=== PATIENT | female | born 1965 | race Caucasian/White ===

== ENCOUNTER → 2022-11-07 11:19 | Outpatient (BNVA) | payer MEDICAID, SELFPAY | PROVIDERS: PCP Family Medicine; Visit Provider Family Medicine | DX: E03.9 Hypothyroidism, unspecified (principal); R32 Unspecified urinary incontinence; E11.9 Type 2 diabetes mellitus without complications; K92.1 Melena; R39.9 Unspecified symptoms and signs involving the genitourinary system | CPT/HCPCS: 80053; 81000; 83036; 84439; 84443; 85025 ==

== ENCOUNTER → 2022-11-13 11:13 | Outpatient (BNVA) | payer MEDICAID, SELFPAY | PROVIDERS: PCP Family Medicine; Referring Provider Family Medicine; Visit Provider Specialist | DX: M17.0 Bilateral primary osteoarthritis of knee (principal) | CPT/HCPCS: 73560; 73565; 99204 ==

== ENCOUNTER 2022-12-21 12:50 | Outpatient (CLI) | payer MEDICAID, SELFPAY ==
--- NOTE | 2022-12-21 13:00 | MR_ITS ---
WS: [id number] MRI LUMBAR SPINE NONCONTRAST HISTORY: SPINAL STENOSIS/LUMBOSACRAL DISC DISORDERS W/RADICULOPATHY COMPARISON: None available. TECHNIQUE: Sagittal and axial multisequence imaging is submitted. Mild cervical stenosis at C4-5. Mild LEFT curvature lumbar spine with straightening. Disc spaces are all significantly narrowed and desiccated with hypertrophic endplate osteophytes. [place] ctive marrow edema. This level. No fracture. Conus terminates normally at L1-2 disc level. Nerve roots are being compressed and are redundant throughout the lumbar spine. T12-L1: Facet arthritis and mild foraminal narrowing. L1-L2: Diffuse disc bulging with ligamentum flavum and facet arthritis. Moderate central and bilatera l subarticular recess and mild foraminal stenosis. Disc contact and displacement on the traversing L2 nerve roots. L2-L3: Diffuse annular disc bulging with osteophytic ridging and facet arthritis. Severe central, jose cruz ateral subarticular recess and foraminal stenosis. Partially extruded disc on the RIGHT extends into the subarticular recess. L3-L4: Severe osteophytic ridging and annular disc bulging with ligamentum flavum and facet arthritis . Severe central with bilateral subarticular recess and foraminal stenosis. L4-L5: Severe annular disc bulging asymmetric to the LEFT. Suspect there are probably disc osteophyte complexes bilaterally but greatest on the LEFT. Severe central, bilateral subarticular recess and fo raminal stenosis. L5-S1: Marked diffuse annular disc bulging with encroachment upon the thecal sac and subarticular rec esses. Severe central, bilateral subarticular recess and foraminal stenosis. Paravertebral soft tissues are normal MR/MR lumbar spine wo con* [id number] IMPRESSION: 1. Severe multilevel stenoses throughout the lumbar spine with advanced facet disease. Severe degenerative disc disease with bulging and protrusions. 2. Severe central, bilateral subarticular recess and foraminal stenosis from L 2-3 through L5-S1. Most significant foraminal stenosis at L5-S1. 3. Moderate central, bilateral subarticular recess and mild foraminal stenosis at L1-2. 4. Redundant nerve roots within the thecal sac are being compressed and deform ed by the severe stenoses.
== END 2022-12-21 12:51 | disposition home or self-care (01) ==
PROVIDERS: PCP Family Medicine; Visit Provider Nurse Practitioner Psychiatric/Mental Health
DX: M48.061 Spinal stenosis, lumbar region without neurogenic claudication (principal); M51.17 Intervertebral disc disorders with radiculopathy, lumbosacral region; M47.27 Other spondylosis with radiculopathy, lumbosacral region; M48.07 Spinal stenosis, lumbosacral region
CPT/HCPCS: 72148

== ENCOUNTER → 2022-12-28 16:01 | Outpatient (BNVA) | payer MEDICAID, SELFPAY | PROVIDERS: PCP Family Medicine; Visit Provider Internal Medicine Pulmonary Disease | DX: J30.2 Other seasonal allergic rhinitis (principal); J44.9 Chronic obstructive pulmonary disease, unspecified; R06.02 Shortness of breath; F17.210 Nicotine dependence, cigarettes, uncomplicated | CPT/HCPCS: 36415; 82785; 86003; 99204 ==

== ENCOUNTER 2023-01-12 11:25 | Outpatient (CLI) | payer MEDICAID, SELFPAY ==
--- NOTE | 2023-01-12 11:15 | CT_ITS ---
WS: [id number] LDCT LUNG CANCER SCREENING TECHNIQUE: Noncontrast CT of the chest with coronal and sagittal reformatted images. CLINICAL INFORMATION: Cancer Screen COMPARISON: None. DLP: DIvol: All CT scans at [facility] use at least one of these dose optimization techniques: automat ed exposure control; mA and/or kV adjustment per patient size (includes targeted exams where dose is matched to clinical indication); or iterative reconstruction. FINDINGS: Mild thoracic curve. Hypertrophic changes thoracic spine. Noncalcified nodule right middle lobe measuring 5 mm. No other suspicious pulmonary parenchymal abnormalities Normal caliber thoracic aorta. Aortic calcification. Coronary calcification. No mediastinal or hilar lymphadenopathy. No axillary lymphadenopathy. Prior cholecystectomy. Adrenal glands are normal. Staci l GE junction. Fatty atrophy of the pancreas. IMPRESSION: CT/CT lung screening 14076 LUNG-RADS: 2-Benign Appearance or Behavior FOLLOW UP: 12 Month: Continue annual screening with LDCT
== END 2023-01-12 11:26 | disposition home or self-care (01) ==
LOC: RAD 11:25
PROVIDERS: PCP Family Medicine; Visit Provider Internal Medicine Pulmonary Disease
DX: Z12.2 Encounter for screening for malignant neoplasm of respiratory organs (principal); F17.210 Nicotine dependence, cigarettes, uncomplicated
CPT/HCPCS: 71271

== ENCOUNTER 2023-01-19 09:19 | Outpatient (CLI) | payer MEDICAID, SELFPAY ==
--- NOTE | 2023-01-19 09:38 | NMCV_ITS ---
NM sonal perf SPECT r/s* [id number] Evan Orr Age: 57 Gender: F : 1965 Exam Date: 01/19/2023 10:59 Ordering Phys: Hernandez Lucio MD Technologist: PERLA Garcia Exam Location: [facility] Indications: SHORTNESS OF BREATH STRESS TEST Please see separate stress test report in [facility] for full findings IMAGE PROTOCOL Rest/Stress 1 Lexiscan Day Radiopharmaceutical Dose (mCi) Administration Site Administered by Rest: Tc-99m 10.6 IV Mickey Lopez, TUBULAR STOCK GLASS BULB MACHINE FORMER Sestamibi Stress:Tc-99m 32.6 IV Mickey Lopez, TUBULAR STOCK GLASS BULB MACHINE FORMER Sestamibi Rest: 19-Jan-2023 60 Discovery 630 Stress: 19-Jan-2023 30 Discovery 630 0.4mg Lexiscan. Supine position only as patient was unable to lay prone. SPECT RESULTS Technical Quality: Excellent Raw Data Analysis: Normal Image Corrections: No attenuation or motion correction applied Summed Stress Score: 14 Summed Rest Score: 7 Summed Difference Score: 7 PERFUSION FINDINGS Moderate area of moderately decreased tracer uptake, involving the basal, mid and apical inferior, mid inferolateral, mid inferoseptal, apical septal, apical lateral and LV apex Significant reversibility was noted in the apical lateral, apical septal and in the LV apex, FUNCTIONAL RESULTS (calculated via Gated SPECT) Stress Image LV EF (%): 67 Stress EDV (mL):118 TID: 0.92 Stress ESV (mL):39 FUNCTIONAL FINDINGS: Segmental wall motion analysis revealing no gross wall motion abnormalities IMPRESSIONS 1. Myocardial perfusion imaging revealing moderate area of moderately decreased tracer uptake, involving the inferior, inferolateral, inferoseptal and apical regions with some reversibility in the apical region, suggesting myocardial scarring in the distribution of all 3 coronary arteries with a small area of ischemia mostly in the LAD distribution. 2. Normal LV ejection fraction of 67%. 3. LV wall motion analysis revealing no gross wall motion abnormalities 4. Normal LV volume. No similar previous studies are available for comparison Dr Maru Holguin MD FACC (Electronically Signed) Final Date: 19 January 2023 16:10 S
--- NOTE | 2023-01-19 09:38 | ECG_ITS ---
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 Interpretive Statements NAME OF STUDY: LEXISCAN SESTAMIBI STRESS TEST INDICATION: Dyspnea on exertion PROCEDURE: At the baseline, the blood pressure was 133/64 mm Hg with a heart rate of 78 bpm. The electrocardiogram showed sinus rhythm, normal axis with normal ST and T wave changes. ??? The Lexiscan was infused over a period of 20 seconds. A total of 0.4 milligrams of Lexiscan was infused. The stress phase was continued for a total of 5 minutes. Heart rate at the end of the stress phase was 92 bpm with a blood pressure of 141/69 mm Hg. The EKG at the peak infusion revealed sinus rhythm with no significant ST-T wave changes. ??? Sestamibi was injected 20 seconds after the Lexiscan infusion. ??? Blood pressure at the end of the recovery phase was 138/71 mm Hg with a heart rate of 89 beats per minute. ??? CONCLUSION: 1. Normal EKG response to LexiScan infusion. 2. No LexiScan induced chest pain or cardiac arrhythmia. 3. Normal blood pressure and heart rate response. 4. Sestamibi/sestamibi perfusion scan pending; see separate report. Electronically Signed On 02-02-2023 8:38:39 CDT by Mariella Fuentes M.D. [id number]
[2023-01-19 09:49] VITALS: BMI 40.5
[2023-01-19] MEDS: regadenoson 0.4 Mg/5 ml Syringe IVP (11:31)
[2023-01-19 12:47] VITALS: BP 138/71; PULSE 91
== END 2023-01-19 09:20 | disposition home or self-care (01) ==
PROVIDERS: PCP Family Medicine; Visit Provider Internal Medicine Pulmonary Disease
DX: R06.02 Shortness of breath (principal)
CPT/HCPCS: 36415; 78452; 93017; 96374; A9500; J2785

== ENCOUNTER 2023-02-07 10:00 | Outpatient (CLI) | payer MEDICAID, SELFPAY ==
[2023-02-07] MEDS: albuterol 2.5 mg/3 mL Neb INHALATION (10:22)
[2023-02-07 10:23] VITALS: PULSE 93; RESP 18; O2SAT 93
[2023-02-07 10:28] VITALS: PULSE 89
== END 2023-02-07 10:01 | disposition home or self-care (01) ==
PROVIDERS: PCP Family Medicine; Visit Provider Internal Medicine Pulmonary Disease
DX: J44.9 Chronic obstructive pulmonary disease, unspecified (principal)
CPT/HCPCS: 94060; 94618; 94729; J7613

== ENCOUNTER → 2023-02-21 14:32 | Outpatient (BNVA) | payer MEDICAID, SELFPAY | PROVIDERS: PCP Family Medicine; Referring Provider Internal Medicine Pulmonary Disease; Visit Provider Internal Medicine | DX: R07.9 Chest pain, unspecified (principal); R94.39 Abnormal result of other cardiovascular function study; I10 Essential (primary) hypertension; E11.9 Type 2 diabetes mellitus without complications; F17.210 Nicotine dependence, cigarettes, uncomplicated; R94.31 Abnormal electrocardiogram [ECG] [EKG] | CPT/HCPCS: 93005; 99204 ==

== ENCOUNTER 2023-03-07 08:59 | Outpatient (CLI) | payer MEDICAID, SELFPAY ==
--- NOTE | 2023-03-07 09:00 | XACV_ITS ---
Exam Room: 2 Ht: 168 cm Wt: 114 kg BSA: 2.36 m2 Gender: Female : 1965 Any Known Allergies: No known allergies Exam Priority: Routine Procedure(s): Procedure Description: Diagnostic procedure Procedure Description: Left Heart Catheterization Procedure Description: Left ventriculography Procedure Description: Coronary Angiography Diagnostic Cath Status: Elective Diagnostic Findings * INDICATION: Chest pain/ abnormal stress test. * No significant disease noted in the Left Main, Left Anterior Descending, Right, or Circumflex coronary arteries. * Coronary angiography shows right dominance. Conclusions 1. No significant disease noted in the Left Main, Left Anterior Descending, Right, or Circumflex coronary arteries. 2. Normal left ventricular systolic function. Ejection fraction of 65%. Recommendations * Aggressive risk factor modification. * Outpatient cardiology follow up in 2-4 weeks. Interventional RX Recommendation: medical therapy and/or counseling Diagnostic RX Recommendation: medical therapy and/or counseling Anticoagulation: Heparin Ventriculography Ejection Fraction: 65.0 % Pressures Phase:Rest AO : 107 / 69 ( 85 ) @ 1:07:00 PM 108 / 68 ( 86 ) @ 1:07:00 PM 98 / 78 ( 89 ) @ 1:07:00 PM 132 / 79 ( 104 ) @ 1:13:00 PM 133 / 79 ( 103 ) @ 1:13:00 PM LV : 133 / -12 / 11 @ 1:06:00 PM 138 / -9 / 11 @ 1:07:00 PM 134 / 1 / 19 @ 1:12:00 PM 153 / 6 / 29 @ 1:13:00 PM 152 / 6 / 30 @ 1:13:00 PM Valves Phase:DefaultPhase AV : 19.0 @ 12:19:15 PM AV Mean Gradient: 14.0 @ 12:19:15 PM 14.0 @ 12:19:15 PM Clinical Evaluation EBL: 5mL-10mL Procedural Details Current Diagnosis : Chest Pain. Pre-Procedure Time Out. Identified patient by full name and date of as verbalized by the patient/guarantor. Does the consent match the physician's order: Yes. Accurate & Complete Informed Consent: Yes. Inpatient/Outpatient History & Physical on Chart: Yes. If H&P is completed, is and addenduem needed: No; If yes, is the addendum complete: N/A. Visualize and Verify Site with Patient/Guarantor: N/A. Relevant Radiology Images available: Yes. Pre-op teaching completed and patient verbalized understanding. The risks, benefits, and alternatives of sedation and/or procedure were discussed by physician. The patient agrees to continue. Procedure started. [facility] Clinical Fraility Score: 3: Managing Well. Triage Technician Indications: Other. Chest Pain Symptom Assessment: Atypical Angina. Correct patient, site and procedure confirmed by cath team. Current diagnosis: Chest Pain. PERRLA. Strong, equal hand hurricane tracker bilaterally. Lungs clear x 5 lobes. IV Site on Arrival: 20 gauge in the left anticubital. IV Fluids: 0.9% NaCl at KVO. 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 Pre Procedural Pulses: bilateral dorsalis pedis was Doppled. Pre Procedural Pulses: bilateral posterior tibial was Doppled. Pre Procedural Pulses: bilateral radial was 3+. Oxygen started at 2liters/min via nasal canula. right groin was prepped with chloroprep then draped in the usual sterile fashion. right radial was prepped with chloroprep then draped in the usual sterile fashion. Baseline sample Acquired. HR: 73 BPM. Physician arrived. Physician scrubbed in. Immediate Pre-Procedure Time Out. Correct Patient: Yes; Correct Procedure: Yes; Correct Site: Yes; Correct Patient Position: Yes; Correct Supplies: Yes; Dried Flammable Prep: Yes; Blood Products Available: N/A;. Lidocaine 1% infiltrated to the right radial. Arterial access obtained. A 5 sudanese TIG catheter in over wire. EDP Sample taken: LV 133/-13,11; HR: 82 BPM; SpO2: 93%. Pullback taken: LV 138/-10,11; AO 107/69(85); Mean: 16mmHg, Peak to Peak: 30mmHg, SEP: 22sec/min; HR: 80 BPM; SpO2: 93%. Multiple views taken of left coronary artery. Catheter redirected to the RCA. Multiple views taken of right coronary artery. Catheter removed over the exchange wire. A 5 sudanese Angled Pig catheter in over wire. EDP Sample taken: LV 134/1,19; HR: 80 BPM; SpO2: 95%. LV gram performed in PAULINO @ 10 mL/second for a total of 30 mL. EDP Sample taken: LV 153/6,29; HR: 78 BPM; SpO2: 97%. Pullback taken: LV 152/6,30; AO 132/79(104); Mean: 14mmHg, Peak to Peak: 19mmHg, SEP: 23sec/min; HR: 76 BPM; SpO2: 97%. Catheter removed over the exchange wire. A TR Band was successful obtaining hemostatsis at the Right Radial artery insertion site. Post Procedure: Pulses reassessed and unchanged. PERRLA. Strong, equal hand hurricane tracker bilaterally. No VTE prophylaxis required. Medication's Wasted: Lidocaine 1% = 2 mL. Medication's Wasted: Nitro = 49.8 mg. Medication's Wasted: Other = Versed 2 mg. Total IV fluids: 50 mL. Vital chart was stopped. Complications: None. Estimated blood loss: 5mL-10mL. Responsiveness - Normal response to verbal stimuli; alert and oriented, PERRLA. Airway - Unaffected, no intervention required; spontaneous ventilation. Circulation: W/N/L, pulses unchanged. Nausea/Vomiting: No. Procedure completed. Patient transferred by stretcher to CPRU. Access Site Site: Right Radial artery Sheath Size: 6 Fr Hemostasis Method: TR Band Hemostasis Success: Successful Procedure Medications Start: 11:59 AM Stop: 11:59 AM Medication: Versed Amount: 1 mg Route: I.V. Start: 11:59 AM Stop: 11:59 AM Medication: Fentanyl Amount: 50 mcg Route: I.V. Start: 12:04 PM Stop: 12:04 PM Medication: Nitrogylcerin Amount: 200 mcg Route: I.A. Start: 12:05 PM Stop: 12:05 PM Medication: Versed Amount: 1 mg Route: I.V. Start: 12:05 PM Stop: 12:05 PM Medication: Fentanyl Amount: 50 mcg Route: I.V. Start: 12:08 PM Stop: 12:08 PM Medication: Heparin Amount: 5000 units Route: I.V. I, the attending physician, have reviewed and verified all procedure medications. Yes, all medications given per verbal order History/Risk Factors Hypertension: Yes Dyslipidemia: Yes Peripheral Arterial Disease (PAD): No Myocardial Infarction (IN): No Obesity: No Renal Disease: No Tobacco Use: Current/Recent(w/in 1 year) Prior Interventions PCI: No CABG: No Valve Surgery: No Report Signatures Finalized by Edy Morin MD on 03/07/2023 01:36 PM
[2023-03-07 09:15] VITALS: BP 103/76; PULSE 90; RESP 16; TEMP 36.8; O2SAT 90; BMI 40.5
[2023-03-07 09:37] LABS: Basophils % 0.5 %; Eosinophils # 0.4 10^3/uL (0.0-0.8); Eosinophils % 4.3 %; Hematocrit 44.5 % (36-47); Lymphocytes % 24.5 %; Mean Corpuscular HGB Conc 33.3 g/dL (30-55); Mean Corpuscular Hemoglobin 32.8 pg (27-33); Mean Corpuscular Volume 98.7 fl (85-98); Mean Platelet Volume 8.5 fL (7.4-10.4); Monocytes # 0.7 10^3/uL (0.2-0.9); Neutrophils # 5.07 10^3/uL (1.8-7.7); Neutrophils % 62.6 %; Nucleated Red Blood Cells % 0 %; Platelet Count 277 10^3/cmm (157-399); Red Blood Count 4.51 10^6/uL (3.85-5.65); Red Cell Distribution Width 13.1 % (12.1-15.1); White Blood Count 8.11 10^3/uL (3.29-11.43)
[2023-03-07 09:41] LABS: Glucose Point of Care 132 mg/dL (70-110)
[2023-03-07 09:54] LABS: Anion Gap 15.3 (5-19); Blood Urea Nitrogen 16 mg/dL (6-20); Calcium 8.8 mg/dL (8.5-10.5); Carbon Dioxide 24 mmol/L (22-29); Chloride 104 mmol/L (98-107); Glomerular Filtration Rate 86.9 mL/min (90-130); Glucose 129 mg/dL (65-115); Osmolality Calculated 291 mOsm/kg (285-295); Potassium 4.3 mmol/L (3.5-5.1); Sodium 139 mmol/L (136-145)
--- NOTE | 2023-03-07 11:53 | W.PM.OPSUD ---
Surgery/Procedure H&P Update DATE OF PROCEDURE: March 07, 2023 DATE H&P PERFORMED: 02/21/23 H&P UPDATE INFORMATION: I have reviewed H&P completed within last 30 days, I have examined patient prior to procedure and No changes to prior documentation PREOP DIAGNOSIS: Chest pain/abnormal stress test PRIMARY INDICATION FOR PROCEDURE: Chest pain/abnormal stress test PLANNED PROCEDURE: Operation Date: 03/07/23 10:00 Proposed Procedures Left heart cath with posssible percutaneous coronary intervention - Edy Morin M.D Possible percutaneous coronary intervention PATIENT REASSESSED PRIOR TO SEDATION, WITH NO CHANGE NOTED: Yes PHYSICAL EXAM: alert, oriented x 3, clear to auscultation bilaterally and regular rate & rhythm AIRWAY EVAL/ANESTHESIA PLAN: normal airway, ASA III, Local Anesthesia, Risks, benefits & alternatives of sedation and/or procedure discussed and Patient agrees to continue as planned
--- NOTE | 2023-03-07 12:20 | SUR.PHASEI ---
Received patient from [facility]istics [facility] gun[facility]- status post cardiac catheterization via the right radial approach. Diagnostic findings. TR BAND has 16 ml of air in place and is hemostaic with no s/s of active bleeding present. Verbal post cath instructions went over with the patient and significant other. They understood teaching well. MD in to disucss findings of procedure. Call light given. Informed to call for needs. Vital and assessments per flowsheets.
[2023-03-07 12:22] VITALS: BP 116/62; PULSE 74; RESP 16; O2SAT 92
[2023-03-07 12:30] VITALS: BP 134/70; PULSE 77; RESP 18; O2SAT 94
[2023-03-07 12:45] VITALS: BP 134/68; PULSE 74; RESP 23; O2SAT 93
== END 2023-03-07 16:33 | disposition home or self-care (01) ==
LOC: CCL 08:59 → CSU 13:27
PROVIDERS: PCP Family Medicine; Visit Provider Internal Medicine
DX: R07.9 Chest pain, unspecified (principal); R94.39 Abnormal result of other cardiovascular function study; I10 Essential (primary) hypertension; E78.5 Hyperlipidemia, unspecified; E11.9 Type 2 diabetes mellitus without complications; F17.200 Nicotine dependence, unspecified, uncomplicated; Z79.84 Long term (current) use of oral hypoglycemic drugs; K21.9 Gastro-esophageal reflux disease without esophagitis; E03.9 Hypothyroidism, unspecified
CPT/HCPCS: 36415; 36416; 80048; 82962; 85025; 93458; 96361; 96365; 96367; 99152; C1769; C1887; C1894; J1644; J2250; J3010; J3490; J7030; Q9967

== ENCOUNTER → 2023-03-12 10:30 | Outpatient (BNVA) | payer MEDICAID, SELFPAY | PROVIDERS: PCP Family Medicine; Visit Provider Internal Medicine Pulmonary Disease | DX: J44.9 Chronic obstructive pulmonary disease, unspecified (principal); Z12.2 Encounter for screening for malignant neoplasm of respiratory organs; Z71.6 Tobacco abuse counseling; F41.9 Anxiety disorder, unspecified; F17.210 Nicotine dependence, cigarettes, uncomplicated; R91.1 Solitary pulmonary nodule; I25.10 Atherosclerotic heart disease of native coronary artery without angina pectoris | CPT/HCPCS: 99214 ==

== ENCOUNTER → 2023-03-14 09:51 | Outpatient (BNVA) | payer MEDICAID, SELFPAY | PROVIDERS: PCP Family Medicine; Visit Provider Nurse Practitioner Family | DX: I10 Essential (primary) hypertension (principal); R07.9 Chest pain, unspecified; F17.210 Nicotine dependence, cigarettes, uncomplicated | CPT/HCPCS: 36415; 80048; 99214 ==

== ENCOUNTER → 2023-05-07 15:23 | Outpatient (BNVA) | payer MEDICAID, SELFPAY | PROVIDERS: PCP Family Medicine; Visit Provider Family Medicine | DX: M48.061 Spinal stenosis, lumbar region without neurogenic claudication (principal); E11.9 Type 2 diabetes mellitus without complications; J43.9 Emphysema, unspecified; E03.8 Other specified hypothyroidism; E06.3 Autoimmune thyroiditis; K21.9 Gastro-esophageal reflux disease without esophagitis; I10 Essential (primary) hypertension; Z79.899 Other long term (current) drug therapy; G89.4 Chronic pain syndrome; M17.0 Bilateral primary osteoarthritis of knee; F17.200 Nicotine dependence, unspecified, uncomplicated; Z71.6 Tobacco abuse counseling | CPT/HCPCS: 80053; 83036 ==

== ENCOUNTER → 2023-08-08 15:11 | Outpatient (BNVA) | payer MEDICAID, SELFPAY | PROVIDERS: PCP Family Medicine; Visit Provider Family Medicine | DX: E03.8 Other specified hypothyroidism (principal); E06.3 Autoimmune thyroiditis; J43.9 Emphysema, unspecified; K21.9 Gastro-esophageal reflux disease without esophagitis; I10 Essential (primary) hypertension; Z79.899 Other long term (current) drug therapy; G89.4 Chronic pain syndrome; M17.0 Bilateral primary osteoarthritis of knee; E11.9 Type 2 diabetes mellitus without complications; F17.200 Nicotine dependence, unspecified, uncomplicated; Z71.6 Tobacco abuse counseling; M48.061 Spinal stenosis, lumbar region without neurogenic claudication | CPT/HCPCS: 84439; 84443 ==

== ENCOUNTER → 2024-01-11 11:25 | Outpatient (BNVA) | payer MEDICAID, SELFPAY | PROVIDERS: PCP Family Medicine; Visit Provider Family Medicine | DX: E11.9 Type 2 diabetes mellitus without complications (principal); E03.8 Other specified hypothyroidism; E06.3 Autoimmune thyroiditis | CPT/HCPCS: 80053; 80061; 83036; 84439; 84443 ==

== ENCOUNTER → 2024-10-15 11:25 | Outpatient (BNVA) | payer MEDICAID, SELFPAY | PROVIDERS: PCP Family Medicine; Visit Provider Family Medicine | DX: E03.8 Other specified hypothyroidism (principal); E06.3 Autoimmune thyroiditis; E11.9 Type 2 diabetes mellitus without complications; I10 Essential (primary) hypertension; M48.061 Spinal stenosis, lumbar region without neurogenic claudication | CPT/HCPCS: 80053; 80061; 83036; 84439; 84443; 85025 ==